=== PATIENT | female | born 1960 | race African-American/Black ===

== ENCOUNTER 2021-08-16 14:09 | Emergency (ER) | payer MEDICAID, OTHER ==
[~2021-08-16] VITALS: Ht 167.6 cm; Wt 71.7 kg
[2021-08-16 17:19] VITALS: BP 130/64
== END 2021-08-16 17:18 | disposition home or self-care (01) ==
LOC: ER 14:09
DX: G43.909 Migraine, unspecified, not intractable, without status migrainosus (principal); R94.31 Abnormal electrocardiogram [ECG] [EKG]
CPT/HCPCS: 70450; 93005